=== PATIENT | female | born 1950 | race Caucasian/White ===

== ENCOUNTER → 2019-03-14 | Outpatient (CLI) | payer OTHER ==
[2019-03-15 13:58] LABS: LOG HCV IU/mL 6.08 (<1.08)
== END | disposition home or self-care (01) ==
LOC: LABWHC1 15:22
PROVIDERS: ATTEND Family Medicine
DX: B19.20 Unspecified viral hepatitis C without hepatic coma (principal)
CPT/HCPCS: 36415; 87522

== ENCOUNTER 2019-05-17 06:18 | Day surgery (SDC) | payer OTHER ==
[2019-05-15 13:52] VITALS: BMI 25.0
[~2019-05-17 06:18] MED LIST: DEXAMETHASONE SOD PHOSPHATE 10 MG/ML 1 ML VIAL IV ONE; HEPARIN SODIUM,PORCINE 5,000 UNIT/ML 1 ML VIAL SQ ONE; HYDROmorphone 0.5 MG/0.5 ML SYRINGE IVP PRN; LIDOCAINE 1% 20 ML VIAL (10MG/ML) FOR IV START INTRADERMA PRN; ONDANSETRON 4 MG/2 ML VIAL IVP ONE; ONDANSETRON 4 MG/2 ML VIAL IVP PRN; Pre Op ABX Message 1 EACH MISC MISCELLANE ONE
[2019-05-17] MEDS: LACTATED RINGERS 1,000 ML IV SCH ×2 (06:51→07:43)
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
[2019-05-17] MEDS ORDERED: MIDAZOLAM 2 MG/2 ML VIAL ONE (07:40)
[2019-05-17] MEDS ORDERED: PROPOFOL 10 MG/ML 20 ML VIAL IV ONE (07:40)
[2019-05-17] MEDS ORDERED: fentaNYL (PF) 50 MCG/ML 2 ML AMP ONE (07:40)
[2019-05-17] MEDS ORDERED: LIDOCAINE 1% INJ 10MG/ML (20 ML MDV) ONE (07:40)
[2019-05-17] MEDS ORDERED: ePHEDrine SULFATE/0.9% NACL/PF 50 MG/5 ML SYRINGE IV ONE (07:40)
[2019-05-17] MEDS ORDERED: GLYCOPYRROLATE 0.2 MG/ML 2 ML VIAL ONE (07:40)
[2019-05-17] MEDS ORDERED: SODIUM CHLORIDE 0.9% 100 ML with ceFAZolin 2,000 MG IV ONE ×2 (07:42)
[2019-05-17] MEDS ORDERED: BUPIVACAINE (PF) 0.25% 30 ML VIAL SQ ONE ×2 (08:09→08:27)
[2019-05-17] MEDS ORDERED: HYDROcodone/APAP 5-325MG 1 EACH TAB PO PRN (08:50)
[2019-05-17] MEDS ORDERED: NALOXONE 0.4 MG/ML 1 ML VIAL IV PRN (08:50)
--- NOTE | 2019-05-17 08:53 | P.OP ---
Date of Procedure: 05/17/19 Procedure(s) Performed: PREOPERATIVE DIAGNOSIS: Left shoulder mass POSTOPERATIVE DIAGNOSIS: Same PROCEDURE: Excision left shoulder mass with intermediate closure SURGEON: Elisha EBL: 10 mL ANESTHESIA: General COMPLICATIONS: None OPERATIVE PROCEDURE: Patient placed in the operative table in the supine positio n. The patient was placed under general anesthesia. The left shoulder was prepped and draped in usual sterile fashion. An elliptical incision was made overlying the left shoulder mass and including a portion of skin. This incision was 10 cm in length. The subcutaneous lipomatous mass was fully excised using electrocautery and blunt dissection. This measured 10 x 9 x 5 cm. This was sent to pathology. The operative site was inspected. No bleeding was seen. The subcutaneous tissues were closed using interrupted 3-0 Vicryl sutures. The skin was closed using a running 4-0 Monocryl stitch. Skin glue and sterile dressings are applied. DISPOSITION: Stable to recovery room
[2019-05-17 08:54] VITALS: TEMP 98.5
[2019-05-17 09:07] VITALS: RESP 16
[2019-05-17 09:31] VITALS: BP 110/73; PULSE 75
== END 2019-05-17 09:48 | disposition home or self-care (01) ==
LOC: OR 06:18
PROVIDERS: ATTEND Surgery
DX: D17.1 Benign lipomatous neoplasm of skin and subcutaneous tissue of trunk (principal); I10 Essential (primary) hypertension; B19.20 Unspecified viral hepatitis C without hepatic coma; I83.90 Asymptomatic varicose veins of unspecified lower extremity; F17.200 Nicotine dependence, unspecified, uncomplicated; Z79.1 Long term (current) use of non-steroidal anti-inflammatories (NSAID); Z79.899 Other long term (current) drug therapy; Z98.890 Other specified postprocedural states; Z80.0 Family history of malignant neoplasm of digestive organs
CPT/HCPCS: 88304; 11406; 12034; J2250; J1644; J1100; J2405; J0690; J2001; J3010; J2704